=== PATIENT | male | born 1980 | race Two or more races ===

== ENCOUNTER 2019-03-07 18:57 | Emergency (ER) | payer MEDICAID, OTHER ==
[~2019-03-07] VITALS: Ht 182.9 cm; Wt 146.1 kg
[2019-03-07] MEDS ORDERED: SODIUM CHLORIDE 0.9% 1,000 ML IVB ONE (19:33)
[2019-03-07] MEDS ORDERED: ONDANSETRON HCL 4 MG/2 ML VIAL IV ONE (19:45)
[2019-03-07] MEDS ORDERED: HYDROmorphone HCL 2 MG/ML VL IV ONE (19:45)
[2019-03-07 20:02] LABS: Basophils # (auto) 0 uL; Basophils % (auto) 0.4 % (0.0-2.0); Eosinophils # (auto) 0.2 uL; Eosinophils % (auto) 2.8 % (0.0-7.0); Hematocrit 49.8 % (41.0-53.0); Hemoglobin 16.6 g/dL (13.5-17.5); Lymphocytes # (auto) 2.8 uL; Lymphocytes % (auto) 38.2 % (10.0-50.0); Mean Corpuscular Hemoglobin 31.3 pg (28.0-32.0); Mean Corpuscular Hgb Conc. 33.4 g/dL (32.0-36.0); Mean Corpuscular Volume 93.8 fL (80.0-100.0); Monocytes # (auto) 0.9 uL; Monocytes % (auto) 12.6 % (0.0-12.0); Neutrophils # (auto) 3.4 uL; Nucleated Red Blood Cells % 0.1 %; Platelet Count (auto) 179 10^3/uL (140-450); Red Blood Cells 5.31 10^6/uL (4.5-5.90); White Blood Cell 7.3 10^3/uL (4.4-10.8)
[2019-03-07 20:11] LABS: Alanine Aminotransferase 122 U/L (16-61); Albumin 3.2 g/dL (3.4-5.0); Amylase 38 U/L (25-115); Anion Gap 6 (5-15); Blood Urea Nitrogen 14 mg/dL (7-18); Calcium 8.2 mg/dL (8.5-10.1); Carbon Dioxide 28 mmol/L (21-32); Chloride 105 mmol/L (98-107); Glucose 139 mg/dL (74-106); Lipase 128 U/L (73-393); Magnesium 2.1 mg/dL (1.6-2.6); Sodium 139 mmol/L (136-145)
[2019-03-07 20:17] LABS: Alkaline Phosphatase 136 U/L (45-117); Aspartate Aminotransferase 53 U/L (15-37); BUN/Creatinine Ratio 16.1; Bilirubin, Total 0.3 mg/dL (0.2-1.0); GFR African American 127 mL/min; GFR Non-African American 105 mL/min; INR 0.98 (0.9-1.15); Partial Thromboplastin Time 26.8 sec (23.64-32.05); Total Protein 6.9 g/dL (6.4-8.2)
[2019-03-07 22:01] VITALS: BP 105/79
[2019-03-07 22:47] LABS: Urine Bacteria FEW /hpf (None Seen); Urine Blood 1+ /uL (Negative); Urine Mucus FEW (None Seen); Urine Specific Gravity 1.029 (1.001-1.035); Urine WBC <1 /hpf (0 - 3)
[2019-03-07] MEDS ORDERED: POTASSIUM EFFERVESENT TAB 25 MEQ PO ONE (23:00)
== END 2019-03-07 23:06 | disposition home or self-care (01) ==
LOC: ER 18:59
DX: R10.13 Epigastric pain (principal); E87.6 Hypokalemia; F15.90 Other stimulant use, unspecified, uncomplicated
CPT/HCPCS: 36415; 74176; 76705; 80053; 81001; 82150; 83690; 83735; 84484; 85025; 85610; 85730; 93005; 96374; 96375; 99284; J1170; J2405; J7030

== ENCOUNTER 2019-08-09 17:53 | Emergency (ER) | payer MEDICAID ==
[~2019-08-09] VITALS: Ht 185.4 cm; Wt 124.7 kg
[2019-08-09 17:55] VITALS: BP 139/88
[2019-08-09 18:59] LABS: Basophils # (auto) 0.1 uL; Basophils % (auto) 0.5 % (0.0-2.0); Eosinophils # (auto) 0.1 uL; Eosinophils % (auto) 0.8 % (0.0-7.0); Hematocrit 50.5 % (41.0-53.0); Hemoglobin 17.1 g/dL (13.5-17.5); Lymphocytes # (auto) 1.9 uL; Lymphocytes % (auto) 14.7 % (10.0-50.0); Mean Corpuscular Hemoglobin 30.9 pg (28.0-32.0); Mean Corpuscular Hgb Conc. 33.9 g/dL (32.0-36.0); Mean Corpuscular Volume 91.1 fL (80.0-100.0); Monocytes # (auto) 1.2 uL; Monocytes % (auto) 9.1 % (0.0-12.0); Neutrophils # (auto) 9.8 uL; Neutrophils % (auto) 74.9 % (37.0-80.0); Nucleated Red Blood Cells % 0.1 %; Platelet Count (auto) 245 10^3/uL (140-450); Red Blood Cells 5.54 10^6/uL (4.5-5.90); Red Cell Distribution Width 14.2 % (11.8-14.3); White Blood Cell 13.1 10^3/uL (4.4-10.8)
[2019-08-09 19:08] LABS: BUN/Creatinine Ratio 16.4; Calcium 8.5 mg/dL (8.5-10.1); Potassium 3.7 mmol/L (3.5-5.1)
[2019-08-09 19:11] LABS: Bilirubin, Total 2.6 mg/dL (0.2-1.0); Total Protein 8.5 g/dL (6.4-8.2)
[2019-08-09 19:39] LABS: Salicylate < 0.2 mg/dL (2.8-20.0)
[2019-08-09 19:40] LABS: Acetaminophen < 2.0 ug/mL (10-30)
== END 2019-08-09 18:43 | disposition left against medical advice (07) ==
LOC: EDBD 17:53 → ER 17:59
DX: F41.9 Anxiety disorder, unspecified (principal)
CPT/HCPCS: 36415; 80053; 80329; 85025